=== PATIENT | male | born 1990 | race Caucasian/White ===

== ENCOUNTER → 2016-07-27 | Outpatient (CLI) | payer BC ==
[~2016-07-27] MED LIST: AMOXICILLIN PO; KEFLEX500 MG PO; MAGIC MOUTHWASH; ULTRAM PO
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
== END | disposition home or self-care (01) ==
LOC: CCAT 17:33
DX: H57.02 Anisocoria (principal)
CPT/HCPCS: 70450